=== PATIENT | female | born 1940 | race Caucasian/White ===

== ENCOUNTER → 2023-12-31 11:10 | Outpatient (REF) | payer MEDICARE, BC, SELFPAY ==
[2023-12-31 12:54] LABS: Blood Urea Nitrogen 43 mg/dl (7-17); Calcium 9.3 mg/dl (8.4-10.2); Carbon Dioxide 25 mmol/L (22-30); Chloride 102 mmol/L (98-107); Glucose 239 mg/dl (70-99); Potassium 5.5 mmol/L (3.5-5.1); Sodium 135 mmol/L (135-145); eGFR 44.36
== END ==
LOC: REG 11:10
PROVIDERS: ATTENDING PHYSICIAN Specialist; FAMILY PHYSICIAN Family Medicine
DX: I10 Essential (primary) hypertension (principal); E87.5 Hyperkalemia; N18.32 Chronic kidney disease, stage 3b; E11.59 Type 2 diabetes mellitus with other circulatory complications; C50.411 Malignant neoplasm of upper-outer quadrant of right female breast; D75.89 Other specified diseases of blood and blood-forming organs; E78.2 Mixed hyperlipidemia; E78.5 Hyperlipidemia, unspecified
CPT/HCPCS: 36415; 80048

== ENCOUNTER → 2024-03-31 10:35 | Outpatient (REF) | payer MEDICARE, BC, SELFPAY ==
[2024-03-31 12:07] LABS: % Basophils 0.5 % (0-2); % Eosinophils 1.7 % (0-6); % Immature Granulocytes 0.3 % (0-0.5); % Lymphocytes 22.5 % (20.5-51.1); % Monocytes 8.2 % (1.7-9.3); % Neutrophils 66.8 % (42.2-75.2); Absolute Eosinophils 0.1 10^3/uL (0-0.7); Absolute Lymphocytes 1.3 10^3/uL (1.2-3.4); Absolute Monocytes 0.5 10^3/uL (0.1-0.6); Absolute Neutrophils 3.9 10^3/uL (1.4-6.5); Hematocrit 31.5 % (37.0-47.0); Hemoglobin 10.8 g/dL (12.0-16.0); Mean Corp Hgb Conc. 34.3 g/dL (33.0-37.0); Mean Corpuscular Hgb 32.9 pg (27.0-31.0); Mean Platelet Volume 10.9 fL (7.4-10.4); Nucleated Red Blood Cells % 0 %; Platelet Count 134 10^3/uL (130-400); Red Blood Cell Count 3.28 10^6/uL (4.20-5.40); Red Cell Dist. Width 12.9 % (11.5-14.5); White Blood Cell Count 5.9 10^3/uL (4.8-10.8)
[2024-03-31 12:16] LABS: Glycohemoglobin (HgbA1c) 7.4 % (4.0-5.6)
[2024-03-31 12:47] LABS: ALT (SGPT) 18 U/L (0-35); AST (SGOT) 28 U/L (14-36); Albumin 4.2 g/dl (3.5-5.0); Alkaline Phosphatase 89 U/L (38-126); Blood Urea Nitrogen 35 mg/dl (7-17); Calcium 9.9 mg/dl (8.4-10.2); Carbon Dioxide 21 mmol/L (22-30); Chloride 104 mmol/L (98-107); Glucose 184 mg/dl (70-99); HDL Cholesterol 60 mg/dl; LDL Cholesterol, Calculated 112 mg/dl; Sodium 136 mmol/L (135-145); Total Bilirubin 0.3 mg/dl (0.2-1.3); Total Cholesterol 203 mg/dl (50-199); Total Protein 6.9 g/dl (6.3-8.2); Triglyceride 157 mg/dl (10-149); Very Low Density Lipoprotein 31 mg/dl (0-30); eGFR 49.24
== END ==
LOC: REG 10:35
PROVIDERS: ATTENDING PHYSICIAN Family Medicine; REFERRING PHYSICIAN Specialist
DX: E11.59 Type 2 diabetes mellitus with other circulatory complications (principal); N18.32 Chronic kidney disease, stage 3b; E78.2 Mixed hyperlipidemia; C50.411 Malignant neoplasm of upper-outer quadrant of right female breast; D75.89 Other specified diseases of blood and blood-forming organs
CPT/HCPCS: 36415; 80053; 80061; 83036; 85025

== ENCOUNTER → 2024-06-05 13:52 | Outpatient (REF) | payer MEDICARE, BC, SELFPAY | LOC: RAD 13:52 | PROVIDERS: ATTENDING PHYSICIAN Surgery Vascular Surgery | DX: I73.9 Peripheral vascular disease, unspecified (principal) | CPT/HCPCS: 93922; 93925 ==

== ENCOUNTER → 2024-06-30 10:41 | Outpatient (REF) | payer MEDICARE, BC, SELFPAY ==
[2024-06-30 11:35] LABS: % Basophils 0.6 % (0-2); % Immature Granulocytes 0.4 % (0-0.5); % Lymphocytes 21.5 % (20.5-51.1); % Monocytes 6.5 % (1.7-9.3); Absolute Eosinophils 0.1 10^3/uL (0-0.7); Absolute Lymphocytes 1.1 10^3/uL (1.2-3.4); Absolute Monocytes 0.3 10^3/uL (0.1-0.6); Absolute Neutrophils 3.6 10^3/uL (1.4-6.5); Hematocrit 31.8 % (37.0-47.0); Hemoglobin 10.9 g/dL (12.0-16.0); Mean Corp Hgb Conc. 34.3 g/dL (33.0-37.0); Mean Corpuscular Hgb 33.6 pg (27.0-31.0); Mean Corpuscular Volume 98.1 fL (81.0-99.0); Mean Platelet Volume 10.9 fL (7.4-10.4); Nucleated Red Blood Cells % 0 %; Platelet Count 129 10^3/uL (130-400); Red Blood Cell Count 3.24 10^6/uL (4.20-5.40); Red Cell Dist. Width 12.6 % (11.5-14.5); White Blood Cell Count 5.2 10^3/uL (4.8-10.8)
[2024-06-30 11:53] LABS: ALT (SGPT) 20 U/L (0-35); AST (SGOT) 27 U/L (14-36); Albumin 4.1 g/dl (3.5-5.0); Alkaline Phosphatase 82 U/L (38-126); Blood Urea Nitrogen 32 mg/dl (7-17); Calcium 9.7 mg/dl (8.4-10.2); Carbon Dioxide 21 mmol/L (22-30); Chloride 108 mmol/L (98-107); Glucose 136 mg/dl (70-99); HDL Cholesterol 57 mg/dl; LDL Cholesterol, Calculated 89 mg/dl; Phosphorus 4.2 mg/dl (2.5-4.5); Potassium 5.3 mmol/L (3.5-5.1); Sodium 137 mmol/L (135-145); Total Bilirubin 0.2 mg/dl (0.2-1.3); Total Cholesterol 168 mg/dl (50-199); Total Protein 6.5 g/dl (6.3-8.2); Triglyceride 112 mg/dl (10-149); Very Low Density Lipoprotein 22 mg/dl (0-30); eGFR 49.24
[2024-06-30 12:04] LABS: Intact PTH 84.7 pg/ml (13.6-85.8)
[2024-06-30 12:29] LABS: Protein/creatinine Ratio 0.3; Urine Protein 11 mg/dl
[2024-06-30 15:41] LABS: Glycohemoglobin (HgbA1c) 7.1 % (4.0-5.6)
== END ==
LOC: REG 10:41
PROVIDERS: ATTENDING PHYSICIAN Specialist; FAMILY PHYSICIAN Family Medicine
DX: I10 Essential (primary) hypertension (principal); E11.59 Type 2 diabetes mellitus with other circulatory complications; N18.32 Chronic kidney disease, stage 3b; C50.411 Malignant neoplasm of upper-outer quadrant of right female breast; D75.89 Other specified diseases of blood and blood-forming organs; D64.9 Anemia, unspecified; E87.5 Hyperkalemia; E78.2 Mixed hyperlipidemia
CPT/HCPCS: 36415; 80053; 80061; 82570; 83036; 83970; 84100; 84156; 85025

== ENCOUNTER 2024-07-27 13:34 | Emergency (ER) | payer MEDICARE, BC, SELFPAY ==
[2024-07-27 13:36] VITALS: BP 120/82
[2024-07-27 13:52] LABS: % Basophils 0.4 % (0-2); % Eosinophils 0.4 % (0-6); % Immature Granulocytes 0.5 % (0-0.5); % Lymphocytes 15.7 % (20.5-51.1); % Monocytes 5.1 % (1.7-9.3); % Neutrophils 77.9 % (42.2-75.2); Absolute Lymphocytes 0.9 10^3/uL (1.2-3.4); Absolute Monocytes 0.3 10^3/uL (0.1-0.6); Absolute Neutrophils 4.4 10^3/uL (1.4-6.5); Hematocrit 31.3 % (37.0-47.0); Hemoglobin 10.9 g/dL (12.0-16.0); Mean Corp Hgb Conc. 34.8 g/dL (33.0-37.0); Mean Corpuscular Hgb 32.7 pg (27.0-31.0); Mean Platelet Volume 9.9 fL (7.4-10.4); Nucleated Red Blood Cells % 0 %; Platelet Count 170 10^3/uL (130-400); Red Blood Cell Count 3.33 10^6/uL (4.20-5.40); Red Cell Dist. Width 12.3 % (11.5-14.5); White Blood Cell Count 5.7 10^3/uL (4.8-10.8)
[2024-07-27 14:11] LABS: ALT (SGPT) 22 U/L (0-35); AST (SGOT) 32 U/L (14-36); Albumin 4.3 g/dl (3.5-5.0); Alkaline Phosphatase 92 U/L (38-126); Blood Urea Nitrogen 28 mg/dl (7-17); Calcium 9.6 mg/dl (8.4-10.2); Carbon Dioxide 21 mmol/L (22-30); Chloride 101 mmol/L (98-107); Glucose 279 mg/dl (70-99); Potassium 5.8 mmol/L (3.5-5.1); Sodium 134 mmol/L (135-145); Total Bilirubin 0.4 mg/dl (0.2-1.3); Total Protein 6.8 g/dl (6.3-8.2); eGFR 55.21
--- NOTE | 2024-07-27 15:39 | ED.GENMED ---
History of Present Illness
General
Chief Complaint: Cough
Source: patient
Time Seen by Provider: 07/27/24 15:21
History of Present Illness
History of Present Illness:
This patient is an 83-year-old female multiple medical history who presents emergency department with complaints of COVID diagnosed approximately 9 days ago characterized by a cough, slight achiness, and slight rhinorrhea. She says it was 'not that
bad'. However, she presents to the ER with her PCPs recommendation because of a continued 'juicy' cough. She is not dyspneic, she denies orthopnea, fever, chills, chest pain, insomnia, leg swelling, anorexia, or other complaints.
Past History
Past History
ED Past Medical History: COPD, GERD, HTN, Hypercholesterolemia, IDDM and Other (Depression, Arthritis, Diabetic neuropathy, Diverticulitis)
ED Past Surgical History: Cholecystectomy, Orthopedic and Other (Right Carotid stent)
Social History
Tobacco: Former smoker
Alcohol: Occasional
Drug: None
Personal:
Living: with family
Phy Exam
Physical Exam
Physical Exam:
GENERAL: Alert , in no apparent distress, nontoxic, extremely well-appearing, eating a sandwich which she packed for herself
EYE: pupils equal and reactive
NECK: Supple, no significant adenopathy.
ENT: o/p clr, mmm.
CARDIAC: Regular rate and rhythm .
LUNGS: Clear breath sounds bilaterally, no acute respiratory distress, no wheezes/rales/rhonchi
ABDOMEN: Soft, without focal tenderness, no r/g, no cvat
NEUROLOGICAL: Alert and oriented, no focal neuro deficits
SKIN: Warm and dry, skin intact.
MUSCULOSKELETAL: No edema, well perfused.
PSYCH: Normal and appropriate interaction.
Course
Orders/Labs/Results
Orders:
Orders
07/27/24 13:39
CR Chest - 2 Views Urgent
Comment:
Reason For Exam: cough
07/27/24 13:42
Complete Blood Count/With Diff Urgent
Comprehensive Metabolic Panel Urgent
Abnormal Lab Results
07/27/24
13:42
RBC 3.33 L 10^6/uL
(4.20-5.40)
Hgb 10.9 L g/dL
(12.0-16.0)
Hct 31.3 L %
(37.0-47.0)
MCH 32.7 H pg
(27.0-31.0)
Absolute Lymphs (auto) 0.9 L 10^3/uL
(1.2-3.4)
Neutrophils % 77.9 H %
(42.2-75.2)
Lymphocytes % 15.7 L %
(20.5-51.1)
Sodium 134 L mmol/L
(135-145)
Potassium 5.8 H mmol/L
(3.5-5.1)
Carbon Dioxide 21 L mmol/L
(22-30)
BUN 28 H mg/dl
(7-17)
Glucose 279 H mg/dl
(70-99)
07/27/24 13:42
07/27/24 13:42
Vital Signs
Initial and Last Documented VS:
Initial Vital Signs
Temp Pulse Resp BP Pulse Ox
98.9 F 77 20 120/82 98
07/27/24 13:36 07/27/24 13:36 07/27/24 13:36 07/27/24 13:36 07/27/24 13:36
Last Documented Vital Signs
Temp Pulse Resp BP Pulse Ox
98.9 F 77 20 120/82 98
07/27/24 13:36 07/27/24 13:36 07/27/24 13:36 07/27/24 13:36 07/27/24 15:30
*Critical Care Note
Total Time (30-74mins, 75-104mins- exclusive of procedures): Not Applicable
Update Note
Update Note:
Patient presents to the Emergency Department with persistent cough
Number and Complexity of Problems Addressed at the Encounter
� Chronic conditions affecting care:
� Acute Exacerbation and/or Progression of Chronic Illness:
� Differential Diagnosis includes: But not limited to ALEXIS inhibitor related cough, COVID related cough, bacterial pneumonia, etc. etc.
Amount and/or Complexity of Data to be Reviewed and Analyzed
� I performed an independent evaluation of and my interpretation is:
EKG:
CT:
Xrays: Chest x-ray read by me NAD
Laboratory Studies: Hyperkalemia at 5.8 which is higher than she has had in the past, baseline renal insufficiency, nonspecific glucose elevation without associated remarkable acidosis
Other:
� Review of other/old records reveals: Patient has had hyperkalemia in the past noted to be 5.1
� Clinical information was obtained by an independent historian:
� Prescriptions/Medications Considered but not given:
� Further testing considered but not performed:
Risk of Complications and/or Morbidity or Mortality of Patient Management
� Social determinants of health affecting care:
� Discussion with other providers (PCP, Hospitalists, Consultants, etc):
� Escalation of care including admission/observation vs risk of discharge considered: Patient is already taking a right medications for her cough including Tessalon, Mucinex, Flonase, nebulizers, etc. She is an occasional cough
noted here, normal oxygenation, normal respiratory status. Strongly suspect cough related to post-COVID status, always a consideration regarding her use of an ALEXIS inhibitor however I think this is extremely unlikely but will need to be monitored
closely. Case discussed with her loan teller, Dr. Duong [place] given her hyperkalemia here at 5.8, aware of labs, meds, etc. Recommends patient continue her medications, have the potassium rechecked on Tuesday, and a dose of Lokelma 10 mg here. This was
all explained in great detail to the patient and she understands the importance of this
ED Attending Note
-
Portions of this chart may have been created with voice recognition software.� Occasional wrong word or��sound alike� substitutions may have occurred due to the inherent limitations of voice recognition software.
Discharge Plan
Departure
Patient Disposition: Home (Routine Discharge)
Date of Disposition: 07/27/24
Time of Disposition: 15:43
Patient with high blood pressure during this ER visit?: Yes
Condition: Good
Discharge Problem:
Cough, Acute hyperkalemia
Instructions: Cough, Adult (DC), Hyperkalemia, BLOOD PRESSURE
Prescriptions:
No Action
insulin glargine [Lantus U-100 Insulin] 1,000 UNITS/10 ML solution
22 units SC DAILY Qty: 0
Patient Comments:
100 unit/ml
Rx Instructions:
AM
clopidogrel 75 MG tablet
75 mg PO DAILY Qty: 0 0RF
ezetimibe 10 MG tablet
10 mg PO QPM Qty: 0 0RF
quetiapine 25 MG tablet
25 mg PO HS MDD MENTAL HEALTH
Patient Comments:
cilostazol 50 MG tablet
50 mg PO BID
tramadol 50 MG tablet
50 mg PO Q8HPRN PRN (Reason: moderate pain)
Patient Comments:
09/20/2020: last filled 08/27/20, 40 tabs for 30 days from [facility] #[id number]
spironolactone 25 MG tablet
25 mg PO QPM
ferrous sulfate [FeroSul] 325 MG tablet
325 mg PO Q48H
metformin 500 MG tablet extended release 24 hr
500 mg PO BID@0900,1700
atenolol 50 MG tablet
50 mg PO DAILY
rosuvastatin 5 MG tablet
5 mg PO Q48H
quetiapine [Seroquel] 50 MG tablet
50 mg PO HS MDD MENTAL HEALTH
Align 4 MG capsule
4 mg PO DAILY
Centrum 1 EACH tablet
1 ea PO DAILY
PreserVision AREDS-2 1 EACH capsule
1 ea PO QPM
cetirizine 10 MG tablet
10 mg PO HS
acetaminophen [Tylenol Extra Strength] 500 MG tablet
500 mg PO Q8HPRN PRN (Reason: mild pain)
zolpidem 5 MG tablet
5 mg PO HSPRN PRN (Reason: insomnia)
Patient Comments:
09/20/2020: last filled 08/16/20, 90 tabs for 90 days from [facility] #[id number]
terazosin 5 MG capsule
5 mg PO HS
lisinopril 20 MG tablet
20 mg PO DAILY
famotidine 20 MG tablet
20 mg PO DAILYPRN PRN (Reason: heartburn)
fluticasone propionate 1 SPRAY spray,suspension
1 spray intranasal DAILYPRN PRN (Reason: congestion)
travoprost (benzalkonium) 2.5 ML drops
1 drp BOTH EYES HS
melatonin 5 MG tablet
5 mg PO DAILY@2029
guaifenesin [Mucus Relief ER] 600 MG tablet extended release 12hr
1,200 mg PO DAILYPRN PRN (Reason: congestion)
mirtazapine [Remeron] 15 mg Tablet
7.5 mg PO HS
GenTeal (PF) 0.3 % Drops
1 drp OPHTHALMIC (EYE) BID PRN (Reason: dry eyes)
Flovent Diskus 100 mcg/actuation Blister With Device
1 inh INHALATION BID
verapamil 300 mg Capsule, [address]
300 mg PO HS
Referrals:
Kendall Trinh Jr., DO [Active] - 07/31/24
Activity Restrictions/Additional Instructions:
YOUR POTASSIUM WAS NOTED TO BE ELEVATED TODAY. YOU ARE GIVEN A MEDICATION TODAY TO LOWER IT. CONTINUE YOUR MEDICATIONS YOU WOULD OVER THE WEEKEND. ON TUESDAY, YOU NEED TO HAVE YOUR POTASSIUM LEVEL RECHECKED. THIS IS VERY IMPORTANT. PLEASE
CONTACT YOUR PRIMARY CARE DOCTOR OR CHANGE HOUSE ATTENDANT TO ARRANGE FOR THIS. IF YOU DEVELOP DIZZINESS, WEAKNESS CHEST PAIN, SHORTNESS OF BREATH, FEVER, VOMITING, LEG SWELLING, OR OTHER WORRISOME SIGNS, PLEASE RETURN TO THE ER IMMEDIATELY.
Interventions
Interventions:
*Risk Screen - Suicide Last Done: 07/27/24 13:36
*General Assessment Last Done: 07/27/24 13:36
*Neglect/Abuse Screening Last Done: 07/27/24 13:36
ED- Fall Risk Assessment Last Done: 07/27/24 15:28
*ED COVID-19 Vaccine History Last Done: 07/27/24 15:28
ED- Pulmonary Assessment Last Done: 07/27/24 15:28
Discharge Date and Time
Print Language: MARTINIQUAIS
[2024-07-27] MEDS: LOKELMA 10 GRAM PO (15:50)
[2024-07-27 15:55] VITALS: BP 121/85
== END 2024-07-27 16:24 | disposition home or self-care (01) ==
LOC: EMR 13:34
PROVIDERS: Emergency Medicine; EMERGENCY PHYSICIAN Emergency Medicine; FAMILY PHYSICIAN Family Medicine
DX: R05.9 Cough, unspecified (principal); E87.5 Hyperkalemia; J44.9 Chronic obstructive pulmonary disease, unspecified; K21.9 Gastro-esophageal reflux disease without esophagitis; I10 Essential (primary) hypertension; E78.00 Pure hypercholesterolemia, unspecified; E11.40 Type 2 diabetes mellitus with diabetic neuropathy, unspecified; F32.A Depression, unspecified; M19.90 Unspecified osteoarthritis, unspecified site; Z87.891 Personal history of nicotine dependence; Z90.49 Acquired absence of other specified parts of digestive tract
CPT/HCPCS: 99283; 71046; 80053; 85025

== ENCOUNTER → 2024-08-02 11:53 | Outpatient (REF) | payer MEDICARE, BC, SELFPAY ==
[2024-08-02 14:22] LABS: Blood Urea Nitrogen 27 mg/dl (7-17); Carbon Dioxide 21 mmol/L (22-30); Chloride 91 mmol/L (98-107); Glucose 214 mg/dl (70-99); Potassium 5.6 mmol/L (3.5-5.1); Sodium 127 mmol/L (135-145); eGFR > 60.00
== END ==
LOC: REG 11:53
PROVIDERS: ATTENDING PHYSICIAN Specialist; FAMILY PHYSICIAN Family Medicine
DX: I10 Essential (primary) hypertension (principal); E87.1 Hypo-osmolality and hyponatremia; E11.69 Type 2 diabetes mellitus with other specified complication; D53.9 Nutritional anemia, unspecified
CPT/HCPCS: 36415; 80048